=== PATIENT | female | born 1945 | race Asian ===

== ENCOUNTER 2017-07-31 01:16 | Emergency (ER) | payer OTHER ==
[~2017-07-31] VITALS: Ht 157.5 cm; Wt 72.6 kg
[2017-07-31 01:29] VITALS: TEMP 100
[2017-07-31 01:56] LABS: PLATELET COUNT 217 K/uL (152-353)
[2017-07-31 02:07] LABS: POTASSIUM 3.1 mmol/L (3.6-5.2); SODIUM 132 mmol/L (136-145)
[2017-07-31 02:15] VITALS: BP 163/90
[2017-07-31] MEDS ORDERED: AMLODIPINE BESYLATE PO (06:20)
[2017-07-31] MEDS ORDERED: CLARITIN10 M1 PO (06:23)
[2017-07-31] MEDS ORDERED: DIVA500T2 PO (06:25)
[2017-07-31] MEDS ORDERED: IRON325 MG PO (06:26)
[2017-07-31] MEDS ORDERED: FLUTICASONE50 MCG (06:28)
[2017-07-31] MEDS ORDERED: HYDROCHLOROT12.5 M1 PO (06:29)
[2017-07-31] MEDS ORDERED: LISI20TA11 PO (06:30)
[2017-07-31] MEDS ORDERED: DAILY-VITE1 TAB PO (06:31)
[2017-07-31] MEDS ORDERED: [UNRECOGNIZED DRUG - OTHER] PO (06:35)
[2017-07-31] MEDS ORDERED: RISP50IN IM (06:39)
[2017-07-31] MEDS ORDERED: RISP0.5T2 PO (06:41)
[2017-07-31] MEDS ORDERED: RISP1TAB PO (06:43)
== END 2017-07-31 02:15 | disposition other institution (70) ==
LOC: ED 01:16
DX: Z04.6 Encounter for general psychiatric examination, requested by authority (principal); F20.89 Other schizophrenia; I10 Essential (primary) hypertension; E11.9 Type 2 diabetes mellitus without complications; D64.89 Other specified anemias
CPT/HCPCS: 36415; 80053; 80061; 80307; 80320; 80329; 81000; 82607; 82746; 83036; 83735; 84100; 84134; 84439; 84443; 85027; 85610; 93005; 99285